=== PATIENT | female | born 1940 | race Caucasian/White ===

== ENCOUNTER 2017-12-30 04:22 | Emergency (ER) | payer MEDICARE, OTHER ==
[2017-12-30] MEDS ORDERED: 0.9 % SODIUM CHLORIDE 10 ML DISP.SYRIN. IV ×2 (06:30)
[2017-12-30 07:08] LABS: ADD MAN DIFF? NO
[2017-12-30] MEDS: IV NORMAL SALINE 500ML BAG 500 ML IV ×2 (07:09)
[2017-12-30 07:11] LABS: BASO # 0.1 x10^3/uL (0.0-0.2); BASO % 1 % (0-3); EOS % 1 % (0-3); LYMPH % 23 % (24-48); MEAN CORPUSCULAR HEMOGLOBIN 28 pg (25-35); MEAN CORPUSCULAR HGB CONC 33 g/dL (31-37); MEAN CORPUSCULAR VOLUME 85 fL (79-100); MONO # 0.8 x10^3/uL (0.0-1.1); MONO % 9 % (0-9); NEUT # 5.9 x10^3uL (1.8-7.7); NEUT % 67 % (31-73); PLATELET COUNT 268 x10^3/uL (140-400); RED BLOOD COUNT 4.93 x10^6/uL (3.50-5.40); RED CELL DISTRIBUTION WIDTH 12.7 % (11.5-14.5); WHITE BLOOD COUNT 8.8 x10^3/uL (4.0-11.0)
[2017-12-30] MEDS: fentaNYL PF VIAL 100 MCG/2 ML VIAL IV ×2 (07:11)
[2017-12-30 07:19] LABS: ANION GAP 8 (6-14); BLOOD UREA NITROGEN 13 mg/dL (7-20); CALCIUM 9.2 mg/dL (8.5-10.1); CARBON DIOXIDE 29 mmol/L (21-32); CHLORIDE 93 mmol/L (98-107); CREATININE 0.7 mg/dL (0.6-1.0); GFR 81.6; GLUCOSE 107 mg/dL (70-99); POTASSIUM 4.2 mmol/L (3.5-5.1); SODIUM 130 mmol/L (136-145)
[2017-12-30 07:25] LABS: ALBUMIN 4.1 g/dL (3.4-5.0); ALK PHOS 76 U/L (46-116); ALT (SGPT) 19 U/L (14-59); AST (SGOT) 15 U/L (15-37); CREATINE KINASE 90 U/L (26-192); DIRECT BILIRUBIN 0.2 mg/dL (0.0-0.2); TOTAL BILIRUBIN 0.6 mg/dL (0.2-1.0); TOTAL PROTEIN 7.7 g/dL (6.4-8.2)
== END 2017-12-30 07:56 | disposition home or self-care (01) ==
LOC: ER 04:22
DX: M17.12 Unilateral primary osteoarthritis, left knee (principal); R25.2 Cramp and spasm; E78.00 Pure hypercholesterolemia, unspecified; I10 Essential (primary) hypertension; K21.9 Gastro-esophageal reflux disease without esophagitis; Z96.651 Presence of right artificial knee joint
CPT/HCPCS: 36415; 73562; 80048; 80076; 82550; 85025; 93971; 96361; 96374; 99285-25; J3010; J7040

== ENCOUNTER → 2018-03-16 | Outpatient (CLI) | payer MEDICARE, OTHER | END | disposition home or self-care (01) | LOC: KCIC MRI 12:39 | DX: M51.26 Other intervertebral disc displacement, lumbar region (principal); M51.36 Other intervertebral disc degeneration, lumbar region; M48.061 Spinal stenosis, lumbar region without neurogenic claudication; M25.78 Osteophyte, vertebrae; I10 Essential (primary) hypertension; E78.00 Pure hypercholesterolemia, unspecified | CPT/HCPCS: 72148 ==

== ENCOUNTER → 2018-09-29 | Outpatient (CLI) | payer MEDICARE ==
[2017-12-30 07:55] VITALS: BP 163/80
[~2018-09-29] MED LIST: ALPR0.254 PO; FERR325T14 PO; HYDR12.58 PO; IOHEXOL 180 MG/ML 10 ML VIAL. ONE; MELO15TA6 PO; METO-239 PO; MULT-460 PO; OMEP20TA8 PO; SIMV40TA3 PO; TRAM1TAB4 PO; WHEA1POW8 PO; methylPREDNISolone ACETATE 80 MG/ML VIAL. ONE
--- NOTE | 2018-09-29 22:21 | PAIN ---
DATE OF SERVICE: 09/29/2018 INITIAL CONSULTATION FOR PAIN CLINIC CHIEF COMPLAINT: Low back and right lower extremity pain. HISTORY OF PRESENT ILLNESS: This is a 78-year-old female who presents with history of pain in the low back and right lower extremity for many years, worse over the past year or so, increasing with walking, standing, change in positions. The patient reports the pain is in the low back, radiating to the posterior gluteus, posterior thigh, posterior calf, lateral calf as well as the foot with some numbness in the leg and foot as well. The patient reports it is becoming more constant. It is tingling with numbness in the right leg as well, nothing in the left leg, worse with walking, standing, change in positions, bothers her from sleep occasionally but does not generally, does wake her up at least once a night. The patient reports it does not affect her bowel or bladder control but does affect her ability to walk and she is using a walker to ambulate. The patient has had physical therapy in the past, which has been good. She is still doing some physical therapy exercises at home on her own and walking as best she can daily, but still the pain is beginning to limit her ability to do so. The patient rates her disability rate from 0-10, 10 being the worst, is a 0 with family home responsibilities, self-care and life support activities, 3 with recreation, 2 with social activity, 2 with occupational activities. The patient did have MRI scan of the lumbar spine dated 03/16/2018 showing more prominent shallow protrusion in the left lateral recess at L4-L5 to the descending left L4 nerve root without displacement, very little change of endplate edema, otherwise comparable with 2013 exam; multilevel degenerative disk disease; mild spondylosis; variable lateral recess stenosis, worse on the left L2-L3 and L1-L2; multilevel lumbar neural foraminal compromise, greatest on the right L3-L4 and L4-L5. The patient reports no loss of motor function with significant fatigability of the right lower extremity with weightbearing and ambulation. PAST MEDICAL HISTORY: Significant for hypertension, hearing loss, gastroesophageal reflux and arthritis. 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 CURRENT MEDICATIONS: Include hydrochlorothiazide, simvastatin, wheat dextrin, omeprazole, metoprolol and alprazolam. ALLERGIES: The patient has no known drug allergies. FAMILY HISTORY: Significant for no major medical problems or conditions she is aware of. SOCIAL HISTORY: The patient does not drink alcohol; does not smoke and does not use any illegal, illicit or recreational drugs. He is and lives locally in [place], [place] with her sister. REVIEW OF SYSTEMS: The patient's review of systems is positive for those items mentioned in history of present illness. All systems reviewed and otherwise negative. It is complete, full and well documented on the patient's chart. PHYSICAL EXAMINATION: VITAL SIGNS: The patient's blood pressure is 115/73, pulse 87, respirations 18 and temperature 97.9 degrees Fahrenheit. Height 5 feet 6 inches and weight is 155 pounds. GENERAL: The patient is awake, alert, oriented, appropriate and very pleasant demeanor. HEENT: Head shows normocephalic and atraumatic. Extraocular movements are intact and symmetrical. Oral cavity: Mucous membranes moist and pink. Dentition is intact. NECK: Shows anterior throat supple without palpable lymphadenopathy noted. Swallow reflex symmetrical. CHEST: Shows normal on inspection. Breath sounds clear to auscultation bilaterally. HEART: Shows S1 and S2 clear. No murmurs auscultated. ABDOMEN: Soft, nontender and nondistended. No palpable organomegaly is noted. No rebound or guarding demonstrated. BACK: Shows spine grossly in the midline. Slight exaggeration of the thoracic kyphosis and some minor flattening of the lumbar lordotic curvature. The patient's lumbar paraspinous musculature shows moderate tenderness with palpation but only diffusely in the low lumbar distribution with some leftward curvature of the spine in the lumbar distribution noted as well. No tenderness over the sacrum or sacroiliac regions. The patient has good rotational motion of the lumbar spine, both laterally as well as extension and flexion without significant difficulty. EXTREMITIES: The patient's lower extremities show deep tendon reflexes at 1+/4 in the patellar and tendo-calcaneus tendons are equal. Motor exam is strong with approximately 4/5 dorsiflexion and extension on the right, 5/5 on the left; quadriceps and hamstring flexion 4/5 right, 5/5 left as well. Peripheral pulses are 1+ posterior tibia. No peripheral edema is noted. The patient's straight leg raise shows mildly positive on the right at about 40 degrees, decreased with knee flexion, left side is negative. Gaenslen's and Alex's maneuvers are negative bilaterally as well. Lower extremities are warm and dry to touch, equal in color and appearance. The patient is able to stand, stand, has difficulty trying to stand on her toes as she loses balance easily and is using a walker to ambulate as noted. IMPRESSION: 1. This is a 78-year-old female with long history for many years, worse over the past year, low back and right lower extremity pain in the radicular pattern. 2. MRI scan of the lumbar spine as noted. 3. Arthritis. 4. Hypertension. 5. Hearing loss. PLAN: Options were discussed with the patient including conservative medical management, physical therapy, interventional techniques. The patient would like to pursue interventional techniques. We discussed a lumbar epidural steroid injection using description as well as anatomical models to describe the procedure. Risks were then discussed including, but not limited to bleeding, infection, possibility of epidural hematoma and subsequent neurological compromise, dural puncture, headaches, spinal cord and/or nerve damage, side effects of steroid medication and poor results regarding pain control. The patient understands and wished to proceed. The patient will return to the clinic in approximately 2 weeks for followup., was counseled as to return appointment, activity level and side effects to be aware of. DIAGNOSES: Lumbar radiculopathy with lumbar degenerative disk disease and lumbar spinal stenosis. PROCEDURE: Lumbar epidural steroid injection, translaminar approach at the L5-S1 level using C-arm fluoroscopic guidance under sterile prep and drape using local anesthetic. MEDICATION INJECTED: A total of 120 mg Depo-Medrol plus 10 mL of preservative-free normal saline and 2 mL of Isovue for contrast. CONDITION AT DISCHARGE: Stable. The patient tolerated the procedure well and had no complications. OMAR PAYTON MD DR: LUCERO/carlos JOB#: [id number] / [id number] ALESSANDRA Gutierrez MD
== END | disposition home or self-care (01) ==
LOC: PNCL 10:43
PROVIDERS: ATTEND Anesthesiology
DX: M51.16 Intervertebral disc disorders with radiculopathy, lumbar region (principal); M48.061 Spinal stenosis, lumbar region without neurogenic claudication; I10 Essential (primary) hypertension; K21.9 Gastro-esophageal reflux disease without esophagitis; M19.90 Unspecified osteoarthritis, unspecified site; H91.93 Unspecified hearing loss, bilateral; Z96.651 Presence of right artificial knee joint; Z98.890 Other specified postprocedural states; Z79.899 Other long term (current) drug therapy
CPT/HCPCS: 62323; J1040; Q9965

== ENCOUNTER → 2018-10-16 | Outpatient (CLI) | payer MEDICARE ==
[2017-12-30 07:55] VITALS: BP 163/80
[~2018-10-16] MED LIST changes: +methylPREDNISolone ACETATE 40 MG/ML VIAL. ONE
--- NOTE | 2018-10-16 21:41 | PAIN ---
DATE OF SERVICE: 10/16/2018 PROGRESS NOTE FOR PAIN CLINIC DIAGNOSES: Lumbar radiculopathy with lumbar degenerative disk disease and lumbar spinal stenosis. HISTORY OF PRESENT ILLNESS: The patient is a 78-year-old female who returns for followup status post lumbar epidural steroid injection x 1. The patient reports about 30% improvement after the first injection, still pain in the low back and bilateral lower extremities, worse on the right. The patient reports it is better with sitting or lying down, worse with standing and walking. She is using a walker at all times, does not awaken her from sleep. The patient reports initially, she was increasing her distance walking, greater ease and comfort; driving a car better; doing household activities and had a very nice holiday where she was able to enjoy, having less pain. The patient reports still pain in the low back, bilateral lower extremities, mostly in the posterior gluteus, posterior thigh, lateral thighs, more on the right than the left but present bilaterally. The patient reports it is a dull ache that shooting and sharp occasionally and aching across the back as well. The patient reports the pain is at 2 on a scale of 10 at its average, is a 7 at its worst and a 0 at its least and is a 2 today. The patient reports no new motor or sensory deficits and no new bladder incontinence or other complaints. PHYSICAL EXAMINATION: VITAL SIGNS: The patient's blood pressure is 124/68, pulse 96, respirations 18 and temperature is 98.0 degrees Fahrenheit. Height is 5 feet 6 inches and weighs 153 pounds. GENERAL: The patient is awake, alert, oriented, appropriate and very pleasant demeanor. HEENT: Head shows normocephalic and atraumatic. Extraocular movements are intact and symmetrical. Oral cavity: Mucous membranes are moist and pink. Dentition is intact. NECK: Shows anterior throat supple without palpable lymphadenopathy noted. Swallow reflex symmetrical. CHEST: Shows normal with inspection. Breath sounds clear to auscultation bilaterally. HEART: Shows S1 and S2 clear. No murmurs auscultated. ABDOMEN: Soft, nontender and nondistended. No palpable organomegaly is noted. No rebound or guarding demonstrated. BACK: Shows spine grossly in the midline. Normal-appearing thoracic kyphosis and slight exaggeration of the thoracic kyphosis and some minor flattening of lumbar lordotic curvature with some rightward scoliosis. The patient's lumbar paraspinous muscle shows moderately tender with palpation throughout the upper, middle, lower distribution of the paraspinous muscles but only diffusely without radiation. No tenderness over the sacrum or sacroiliac regions. The patient has good rotational motion both laterally as well as extension and flexion without significant increase in pain. EXTREMITIES: The patient's lower extremities show deep tendon reflexes at 1+ in the patella and tendo-calcaneus tendons. Motor exam is approximately 4 on a scale 5 on the right and 5/5 on the left with dorsiflexion and extension. Peripheral pulses are 1+ posterior tibial bilaterally. Options were discussed with the patient. The patient's old chart was reviewed as well as her current medication regimen updated. Current review of systems updated today as well. We will proceed with a second in the series of lumbar epidural steroid injection today with fluoroscopic guidance. Risks were again discussed including but not limited to bleeding, infection, possibility of epidural hematoma, subsequent neurologic compromise, dural puncture, headaches, spinal cord and/or nerve damage, side effects of steroid medication and poor results regarding pain control. The patient understands and wished to proceed. The patient will return to the clinic in approximately 2 weeks for followup, was counseled as to return appointment, activity level and side effects to be aware of. DIAGNOSES: Lumbar radiculopathy with lumbar degenerative disk disease and lumbar spinal stenosis. PROCEDURE: Lumbar epidural steroid injection, translaminar approach, L5-S1 level using C-arm fluoroscopic guidance under sterile prep and drape using local anesthetic. MEDICATION INJECTED: A total of 120 mg Depo-Medrol plus 10 mL of preservative-free normal saline and 2 mL of Isovue for contrast. CONDITION AT DISCHARGE: Stable. The patient tolerated the procedure well and had no complications. OMAR PAYTON MD DR: LUCERO/carlos JOB#: [id number] / [id number]
== END | disposition home or self-care (01) ==
LOC: PNCL 10:02
PROVIDERS: ATTEND Anesthesiology
DX: M51.16 Intervertebral disc disorders with radiculopathy, lumbar region (principal); M48.061 Spinal stenosis, lumbar region without neurogenic claudication
CPT/HCPCS: 62323; J1030; J1040; Q9965

== ENCOUNTER → 2021-08-21 | Outpatient (CLI) | payer MEDICARE ==
[2017-12-30 07:55] VITALS: BP 163/80
[~2021-08-21] MED LIST changes: -IOHEXOL 180 MG/ML 10 ML VIAL. ONE; +SIMV40TA18 PO; -SIMV40TA3 PO; -methylPREDNISolone ACETATE 40 MG/ML VIAL. ONE; -methylPREDNISolone ACETATE 80 MG/ML VIAL. ONE
--- NOTE | 2021-08-21 12:48 | KCIC ---
EXAM: XR WRIST 3V 08/21/2021 11:10 AM CLINICAL INDICATION: Bilateral wrist pain. Arthritis COMPARISON: None TECHNIQUE: PA, oblique, and lateral views of the right and left wrist FINDINGS: Bones are diffusely demineralized. 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 Severe joint space narrowing with subchondral sclerosis of the radiocarpal joints, distal radioulnar joint, and the prox imal lunate bilaterally. There is also severe joint space narrowing with subchondral sclerosis and sm all osteophytes at the first CMC joint bilaterally. There is mild widening of the scapholunate interv al on the left and possibly on the right. No focal soft tissue abnormality. IMPRESSION: 1. 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 There is subchondral sclerosis in the distal ulna and proximal lunate bilaterally. 2. 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 3. Osteopenia. 4. Lunotriquetral coalition bilaterally. Electronically signed by: Ramona Pierson MD (08/21/2021 12:46 PM) [id number]
== END ==
LOC: KCIC 11:00
PROVIDERS: ATTEND Family Medicine
DX: S63.8X2A Sprain of other part of left wrist and hand, initial encounter (principal); M19.042 Primary osteoarthritis, left hand; M19.041 Primary osteoarthritis, right hand; M85.842 Other specified disorders of bone density and structure, left hand; M85.841 Other specified disorders of bone density and structure, right hand; X58.XXXA Exposure to other specified factors, initial encounter; Y93.89 Activity, other specified; Y92.89 Other specified places as the place of occurrence of the external cause; Y99.8 Other external cause status
CPT/HCPCS: 73110-50